=== PATIENT | female | born 1945 | race Caucasian/White ===

== ENCOUNTER 2020-10-23 10:21 | Emergency (ER) | payer MEDICARE, SELFPAY ==
[2020-10-23 10:23] VITALS: BP 163/73; PULSE 86; RESP 16; TEMP 37.1; O2SAT 95; BMI 29.0
--- NOTE | 2020-10-23 11:08 | HMH.EDUTC ---
[facility] [place] Clinical Impression: Sinusitis Qualifiers: Sinusitis location: unspecified location Chronicity: acute Recurrence: non-recurrent Qualified Code(s): J01.90 - Acute sinusitis, unspecified Pharyngitis Qualifiers: Pharyngitis/tonsillitis etiology: unspecified etiology Qualified Code(s): J02.9 - Acute pharyngitis, unspecified Disposition: Home, Self-Care Condition on Discharge: Good Additional Instructions: Drink plenty of fluids. Take tylenol or ibuprofen for pain or fever. Take the medications as directed. Follow up with your regular doctor. GO TO THE ER FOR ANY WORSENING SYMPTOMS The cough medication (promethazine dm) will make you drowsy, so don't drive or operate heavy machinery after taking it. Prescriptions: Promethazine/Dextromethorphan [Promethazine-Dm Syrup] 5 ml PO Q6HP PRN #240 syrup PRN Reason: Cough [id number] predniSONE [Deltasone 10mg tablet] 10 mg PO BID 3 Days #6 tab Transmission Status: Received by [facility] Azithromycin [Z-Dani 250mg Tab*] 250 mg PO UD DOSE PK #6 tab Transmission Status: Received by [facility] Referrals: Melony Martinez [Primary Care Provider] - Time of Disposition: 11:18 Medical Decision Making - Medical Records Medical records reviewed: No: I reviewed the patient's medical records. - Aurelio Inquiry Pt receiving controlled substance: No Vital Signs: 10/23/20 10:23 10/23/20 11:20 Temperature 98.8 F 98.8 F Temperature Source Oral Oral Pulse Rate 86 Pulse Rate [Left Radial] 86 Respiratory Rate 16 16 Blood Pressure 163/73 H Blood Pressure [Right Arm] 163/73 H Blood Pressure Mean [Right Arm] 103 Blood Pressure Source Automatic Cuff Blood Pressure Source [Right Arm] Automatic Cuff Blood Pressure Position Sitting Blood Pressure Position [Right Arm] Sitting 02 Sat by Pulse Oximetry 95 Oxygen Delivery Method Room Air Room Air - Lab Data Lab results reviewed: Yes: I reviewed the patient's lab results. Lab Results 10/23/20 10:54: Strep Scn Rapid Clinic Negative Orders (Tests/Meds): ORDERS Category Date Time Status Strep Screen Confirmation Stat Micro 10/23/20 10:54 Received [facility] [place] - General Stated complaint: sore throat, cough, congestion Time Seen by Provider: 10/23/20 11:08 Mode of Arrival: Ambulatory Source of Information: Patient Limitations: No Limitations Description of Symptoms (Recalled from Triage Doc. by RN): c/o green nasal drainage with cough and sore throat since HEENT Symptoms (Recalled from RN notes): Yes Resp Symptoms (Recalled from RN notes): No Skin Symptoms (Recalled from RN notes): No MS Symptoms (Recalled from RN notes): No Functional Status (Recalled from RN notes): wnl - History of Present Illness Provider Complaint: She states that for the past 3 days she has had sinus drainage, sore throat and nasal congestion. She has a nonproductive cough that is worse when she lays down at night. She denies any shortness of breath and chest congestion. She denies any fever/chills/body aches. She has been vaccinated against covid-19. - Related Data Home Medications Medication Instructions Recorded Confirmed Ascorbic Acid [Vitamin C 500mg 500 mg PO DAILY 10/23/20 10/23/20 tablet] Aspirin 81 mg PO DAILY 10/23/20 10/23/20 Calcium Carbonate [Calcium] 600 mg PO DAILY 10/23/20 10/23/20 Cholecalciferol (Vitamin D3) 800 unit PO DAILY 10/23/20 10/23/20 [Vitamin D3] Echinacea 760 mg PO DAILY 10/23/20 10/23/20 Magnesium 250 mg PO DAILY 10/23/20 10/23/20 [place]-3 Fatty Acids/Fish Oil [Fish 1 each PO DAILY 10/23/20 10/23/20 Oil 1,000 mg Capsule] Simvastatin 20 mg PO DAILY 10/23/20 10/23/20 Vitamin E 400 unit PO DAILY 10/23/20 10/23/20 Previous Rx's Medication Instructions Recorded Azithromycin [Z-Dani 250mg Tab*] 250 mg PO UD DOSE PK #6 tab 10/23/20 Promethazine/Dextromethorphan 5 ml PO Q6HP PRN #240 syrup
[2020-10-23 11:20] VITALS: BP 163/73; PULSE 86; RESP 16; TEMP 37.1; O2SAT 95
[2020-10-23 17:17] LABS: UTC Strep Screen (Rapid) Negative (Negative)
== END 2020-10-23 11:23 | disposition home or self-care (01) ==
PROVIDERS: Emergency Provider Nurse Practitioner Family; PCP Family Medicine
DX: J01.90 Acute sinusitis, unspecified (principal); J02.9 Acute pharyngitis, unspecified; Z20.822 Contact with and (suspected) exposure to COVID-19
CPT/HCPCS: 87880; 99203; G0463; U0003